=== PATIENT | female | born 2000 | race Caucasian/White ===

== ENCOUNTER 2022-10-19 21:10 | Emergency (ER) | payer OTHER, SELFPAY ==
[2022-10-19 21:16] VITALS: BP 124/73; PULSE 88; RESP 14; TEMP 37.1; O2SAT 99
--- NOTE | 2022-10-19 21:18 | ECG_ITS ---
Measurements Intervals [place] Rate: 94 P: 66 [place]: 146 QRS: 59 QRSD: 76 T: 42 QT: 348 QTc: 437 Interpretive Statements SINUS RHYTHM RSR' IN V1 OR V2, PROBABLY NORMAL VARIANT BORDERLINE ECG NO PREVIOUS ECG AVAILABLE FOR COMPARISON Electronically Signed On 10-19-2022 21:33:31 CDT by Geo Gomez D.O.
[2022-10-19 21:53] LABS: Strep Group A RT-PCR NOT DETECTED (Negative)
[2022-10-19 23:39] VITALS: BP 115/74; PULSE 72; RESP 16; O2SAT 100
--- NOTE | 2022-10-19 23:45 | PC.NURSE ---
pt sts that her throat hurts and her tonsils were swollen. pt has 2 small children laying on the floor and two other children sitting in chairs. pt is axox4, abc are wnl nad. airway is patent, spontaneous and self maintained. pt
== END 2022-10-19 23:59 | disposition left against medical advice (07) ==
PROVIDERS: Emergency Provider Emergency Medicine
DX: J02.9 Acute pharyngitis, unspecified (principal)
CPT/HCPCS: 87651; 93005; 99199